=== PATIENT | female | born 1995 | race Caucasian/White ===

== ENCOUNTER 2018-05-27 21:01 | Emergency (ER) | payer OTHER ==
--- NOTE | 2018-05-27 22:00 | UC ---
Complaint Female HPI - HPI Summary HPI Summary: 22-year-old woman comes in today after being diagnosed with urinary tract infection at [facility]. A week ago she had burning with urination was treated with Macrobid and she got better. The symptoms came back a couple of days ago when she started on Macrobid this morning. She had a dialysis done at [facility] which showed leukocytes and bacteria and blood. She shows me a culture from yesterday but had no growth. The urinary symptoms improved since she started the Macrobid this morning. She was having some low back pain and some tenderness in her left armpit and an intermittent right orbit headache. He called [facility] and after hearing her story the asked her to be evaluated here. She's been having a headache for about 3 days it's sharp headache that intermittent into the right I. Saw an mathematics department chair who said she had a normal exam it was probably a migraine. She been taking ibuprofen which helps the headache. Prior history of cluster headaches. No vision changes no weakness no numbness. The pain in her low back is the middle of the back it's not in the flanks. It's intermittent she has not pain now. She also receiving had some pain in her left armpit and that pain is also gone. Patient reports a [facility] they also did a pelvic exam and told her there was no vaginal infection. - History Of Current Complaint Chief Complaint: Andreia Stated Complaint: HEADACHE, BACK PAIN, AND SWELLING IN ARMPIT Time Seen by Provider: 05/27/18 21:23 Hx Last Menstrual Period: [id number] Pain Intensity: 4 - Allergies/Home Medications Allergies/Adverse Reactions: Allergies Allergy/AdvReac Type Severity Reaction Status Date / Time amoxicillin Allergy Rash Verified 05/27/18 21:19 Home Medications: Home Medications Ibuprofen TAB* [Advil TAB*] 200 mg PO Q6H PRN 05/27/18 [History Confirmed ] Nitrofurantoin Monohyd/M-Cryst [Macrobid 100 mg Capsule] 100 mg PO DAILY [History Confirmed 05/27/18] diPHENhydraMINE PO* [Benadryl PO 25 MG TAB*] 25 mg PO BEDTIME PRN 05/27/18 [ History Confirmed 05/27/18] PMH/Surg Hx/FS Hx/Imm Hx Previously Healthy: Yes - Surgical History Surgical History: None - Family History Known Family History: Positive: Unknown - Social History Alcohol Use: Weekly Alcohol Amount: 3-5 Substance Use Type: None Smoking Status (MU): Never Smoked Tobacco Review of Systems All Other Systems Reviewed And Are Negative: Yes Constitutional: Positive: Negative Skin: Positive: Negative Eyes: Positive: Negative ENT: Positive: Negative Respiratory: Positive: Negative Cardiovascular: Positive: Negative Gastrointestinal: Positive: Negative Genitourinary: Positive: Dysuria, Frequency, Urgency. Negative: Vaginal/Penile Burning, Vaginal/Penile Itching, Vaginal/Penile Discharge, Vaginal/Penile Pain, Vaginal/Penile Tenderness Motor: Positive: Negative Neurovascular: Positive: Negative Musculoskeletal: Positive: Other: - SEE HPI Neurological: Positive: Headache - SEE HPI Psychological: Positive: Negative Is Patient Immunocompromised?: No Physical Exam Triage Information Reviewed: Yes Appearance: Well-Appearing, No Pain Distress, Well-Nourished Vital Signs: Initial Vital Signs Temp 100.4 F 05/27/18 21:10 Pulse 99 05/27/18 21:10 Resp 16 05/27/18 21:10 BP 148/107 05/27/18 21:10 Pulse Ox 100 05/27/18 21:10 Vital Signs Reviewed: Yes Eye Exam: Normal Eyes: Positive: Conjunctiva Clear ENT Exam: Normal ENT: Positive: Pharynx normal, TMs normal. Negative: Nasal congestion, Nasal drainage Neck exam: Normal Neck: Positive: Supple Respiratory: Positive: Lungs clear, Normal breath sounds, No respiratory distress Cardiovascular: Positive: RRR Abdomen Description: Positive: Nontender, Soft. Negative: CVA Tenderness (R), CVA Tenderness (L) Bowel Sounds: Positive: Present Musculoskeletal Exam: Normal Musculoskeletal: Positive: Strength Intact, ROM Intact, Other: - LOW BACK NON TENDER TO PALPATION LEFT AXILLA NON TENDER, NO MASSES, NO ERYTHEMA Neurological Exam: Normal Neurological: Positive: Alert, Muscle Tone Normal Psychological Exam: Normal Psychological: Positive: Age Appropriate Behavior Skin Exam: Normal Complaint Female Dx - Course Course Of Treatment: Urine here in clinic had some leukocytes. Overall most of the patient's symptoms that she was asked to come to our clinic for have gone away. The headache sounds like a cluster headache. She's had a normal OPHTHALMOLOGIC EXAM. Her urinary symptoms have improved she has no back pain or left arm Pain. NO Evidence of kidney infection or meningitis or sepsis on exam. At this time we'll continue the Macrobid and follow-up with [facility]. Patient denies any fevers. The temperature here at triage was 100.4. The patient did not feel warm on exam recheck temperature was 98.7. - Differential Dx/Diagnosis Provider Diagnosis: UTI (urinary tract infection), Low back pain, Headache, Left axillary pain Discharge - Sign-Out/Discharge Documenting (check all that apply): Patient Departure All imaging exams completed and their final reports reviewed: No Studies - Discharge Plan Condition: Stable Disposition: HOME Patient Education Materials: Urinary Tract Infection in Children (ED), Cluster Headache (ED), Acute Low Back Pain (ED) Referrals: [facility] [Provider Group] Additional Instructions: FOLLOW UP WITH [facility]. GET RECHECKED FOR ANY WORSENING OF YOUR CONDITION OR QUESTIONS OR CONCERNS. - Billing Disposition and Condition Condition: STABLE Disposition: Home
[2018-05-27 22:12] VITALS: BP 127/78
== END 2018-05-27 22:28 | disposition home or self-care (01) ==
LOC: UCEAST 21:01
DX: N39.0 Urinary tract infection, site not specified (principal); M54.5 Low back pain; R51 Headache; M79.622 Pain in left upper arm; Z88.0 Allergy status to penicillin
CPT/HCPCS: 81003; 84702; 87086; 99211; G0463